=== PATIENT | male | born 1970 | race African-American/Black ===

== ENCOUNTER 2020-02-12 10:25 | Emergency (ER) | payer SELFPAY ==
--- NOTE | 2020-02-12 11:10 | RAD ---
Left knee 4 views HISTORY: Left knee injury. FINDINGS: Joint spaces are preserved. Prominent osteophytosis of the tibial spines. No acute fracture, dislocation, or fluid distention of the suprapatellar bursa. IMPRESSION : Osteoarthritic changes. No acute osseous abnormalities are demonstrated.
== END 2020-02-12 11:53 | disposition home or self-care (01) ==
LOC: ERS 10:25
DX: S83.91XA Sprain of unspecified site of right knee, initial encounter (principal); J45.909 Unspecified asthma, uncomplicated; W06.XXXA Fall from bed, initial encounter

== ENCOUNTER 2020-09-28 07:47 | Emergency (ER) | payer SELFPAY ==
[2020-09-28] MEDS ORDERED: Dexamethasone 10 MG/ML VIAL ONE (08:33)
[2020-09-28] MEDS ORDERED: Albuterol 200 PUFF (6.7GM INHALER) ONE (09:04)
[2020-09-28 09:17] LABS: #Basophils 0.1 thou/uL (0.0-0.2); #Lymphocytes 1.5 thou/uL (1.20-3.40); #Monocytes 0.5 thou/uL (0.11-0.59); #Neutrophils 4.7 thou/uL (1.40-6.50); %Basophils 1.6 % (0.0-1.0); %Eosinophils 0.2 % (0.0-10.0); %Lymphocytes 21.9 % (21.0-51.0); %Monocytes 7.1 % (0.0-10.0); %Neutrophils 69.2 % (42.0-75.0); Hemoglobin 14.3 g/dL (14.0-18.0); Mean Corpuscular HGB CONC 32.4 g/dL (32.0-36.0); Mean Corpuscular Volume 89.6 fL (78.0-98.0); Mean Platelet Volume 7.9 fL (7.4-10.4); Platelet Count 324 thou/uL (130-400); RBC Distribution Width 14.1 % (11.5-14.5); Red Blood Cell (RBC) Count 4.93 mill/uL (4.70-6.10); White Blood Cell (WBC) Count 6.8 thou/uL (4.8-10.8)
[2020-09-28 09:38] LABS: ALT (SGPT) 21 U/L (8-55); AST (SGOT) 18 U/L (5-34); Albumin 4.1 g/dL (3.5-5.0); Alkaline Phosphatase 68 U/L (40-110); Anion Gap 12 mmol/L (10-20); BUN (Urea Nitrogen) 11 mg/dL (8.9-20.6); Bilirubin, Total 0.4 mg/dL (0.2-1.2); Calc. Creatinine Clearance 0 mL/min (70-130); Carbon Dioxide 28 mmol/L (22-29); Chloride 104 mmol/L (98-107); Globulin 3.6 g/dL (2.4-3.5); Glucose 119 mg/dL (70-105); Protein, Total 7.7 g/dL (6.0-8.3); Sodium 140 mmol/L (136-145)
[2020-09-28 10:02] LABS: SARS-CoV-2 NAA Rapid Test DETECTED (NotDetected)
[2020-09-28] MEDS ORDERED: Iopamidol 370 76% 100 ML VIAL ONE (11:25)
== END 2020-09-28 12:02 | disposition home or self-care (01) ==
LOC: ERS 07:47
DX: U07.1 COVID-19 (principal); J12.82 Pneumonia due to coronavirus disease 2019; J45.909 Unspecified asthma, uncomplicated
CPT/HCPCS: 0240U; 71045; 71275; 80053; 84484; 85025; 85379; 93005; 96374; J1100; Q9967

== ENCOUNTER 2021-08-10 10:06 | Emergency (ER) | payer OTHER | END 2021-08-10 13:10 | disposition home or self-care (01) | LOC: ERS 10:06 | DX: S80.01XA Contusion of right knee, initial encounter (principal); I10 Essential (primary) hypertension; W18.39XA Other fall on same level, initial encounter ==

== ENCOUNTER 2022-03-27 11:05 | Emergency (ER) | payer SELFPAY ==
[2022-03-27] MEDS ORDERED: Ibuprofen 200 MG TAB ONE (13:18)
== END 2022-03-27 13:12 | disposition home or self-care (01) ==
LOC: ERS 11:05
DX: M25.561 Pain in right knee (principal); I10 Essential (primary) hypertension